=== PATIENT | male | born 1980 | race African-American/Black ===

== ENCOUNTER 2023-05-21 09:53 | Outpatient (CLI) | payer BC | END 2023-05-21 09:54 | disposition home or self-care (01) | LOC: CSHRAD 09:53 | PROVIDERS: ATTEND Physician Assistant Surgical | DX: M48.062 Spinal stenosis, lumbar region with neurogenic claudication (principal); Z98.890 Other specified postprocedural states; M47.816 Spondylosis without myelopathy or radiculopathy, lumbar region | CPT/HCPCS: 72100 ==